=== PATIENT | female | born 1990 | race Caucasian/White ===

== ENCOUNTER 2021-10-20 06:06 | Day surgery (SDC) | payer BC, MEDICAID, SELFPAY ==
[2021-10-20] VITALS (8 sets, daily range): BP systolic 110–126; BP diastolic 71–89; PULSE 45–84; RESP 16; TEMP 36.3–36.6; O2SAT 96–100; BMI 38.0
[2021-10-20 07:15] LABS: Hemoglobin 12.4 g/dL (12.0-15.0); Mean Corp Hgb Conc 31.8 g/dL (32-36); Mean Corpuscular Hgb 26.6 pg (27.0-32.0); Mean Corpuscular Volume 83.7 fL (81-99); Mean Platelet Vol. 10.3 fl (6.2-12.0); Platelet Count 183 K/mm3 (150-450); RBC Distribution Width CV 15.3 % (11.6-14.6); RBC Distribution Width SD 45.4 fl (35.1-43.9); Red Blood Count 4.66 M/mm3 (4.2-5.4); White Blood Count 4.9 K/mm3 (4.4-11.0)
--- NOTE | 2021-10-20 07:30 | POC_PTH ---
PATIENT: JOEL ROJAS [place] [facility] [place][id number] AGE/SX: 31/F ROOM: RE10/20/[address]: Dr. Ro Soto DO : 1990 BED: DIS: 10/20/2021 SPEC #: [id number] RECD: 10/20/21 08:43 STATUS: BONIFACIO ERICH #: [id number] SASHA: 10/20/21 07:[address]: Ro Soto DEPT: SURGICAL PATHOLOGY RECD BY: Aurelia Malone ENTERED: 10/20/21 10:38 SP TYPE: PROD CONC OTHR DR: No Primary Care Phys Tissues: Product of conception, NOS Procedures: Surgery Specimen Level IV HEADER OPERATION: Suction dilation and curettage PRE-OP DIAGNOSIS: 11-week missed TISSUE SUBMITTED: Products of conception MICROSCOPIC DIAGNOSIS Endometrium, curettage: Chorionic villi, decidualized stroma and trophoblastic cells consistent with products of conception. AM:shaka 10/23/2021 MICROSCOPIC DESCRIPTION Slides are reviewed. GROSS DESCRIPTION Received in fixative is one container labeled with the patient's name and designated products of conception. The specimen consists of multiple irregular and hemorrhagic fragments of red-steward soft tissue that in aggregate measure 14 x 13 x 1.5 cm. parts are not grossly identified. Mixing Machine Tender sections are submitted in one cassette. / AM:shaka 10/20/2021 TC:5 CPT: 39587
[2021-10-20] MEDS: miSOPROStol 200 MCG Tablet (08:25)
--- NOTE | 2021-10-20 08:31 | PCM.DC ---
Discharge Instructions Diet Discharge Diet: No restrictions Activity Discharge Activity: May Not Drive (for 24 hours after surgery) May resume sexual activity in: 1-2 weeks (No intercourse, tampons, hot tubs, baths, or pools for 1-2 weeks until bleeding stops) Weight Bearing Status: Weight bearing as tolerated Lifting Restrictions: None Additional Activity Instructions:: You will have cramping for a few days, and bleeding for 1-2 weeks. Take Ibuprofen as needed, and use a heating pad. Dressing / Incision Call your doctor if you observe: Fever of 101 or Higher, Coldness, Increased Pain, Numbness or Tingling, Change in Color, Inability to urinate, Inability to have a bowel movement, Using more than 1 pad per hour, Shortness of breath, Dizziness, Fainting spells, Swelling in the ankles, Chest pain, Increased palpitations (irregular heartbeat), Calf discomfort and Uncontrolled pain Follow Up Care Please Follow Up With: Ro Soto DO When: 1 week Test Results: Test results from this visit will be discussed in further detail at your follow-up appointment, if applicable. Discharge Plan Admission Primary Reason for Your Visit: surgery Attending Provider: Ro Soto Primary Care Provider: Fide Hernandez,Mini Primary Discharge Orders/Prescriptions Prescriptions: New ibuprofen 600 mg tablet 600 mg PO Q6H PRN (Reason: pain) Qty: 30 RF: 0 Referrals / Follow Up: Care Physician,Mini Primary [Primary Care Provider] - Disposition Disposition (needs filled in before D/C Order can be placed): Home, Self Care
--- NOTE | 2021-10-20 08:33 | PCM.OPRPT ---
Problems Associated Problem List Diagnoses (1) Missed : Report of Operation Date of Procedure: 10/20/21 Pre-Operative Diagnosis: 11 week MAB Post-Operative Diagnosis: 11 week MAB Surgery/Procedure Performed:: Suction D&C under ultrasound guidance Description of Surgical Findings:: Enlarged 11 week uterus Surgeon: Ro Soto Type of Anesthesia: MAC Special Medications: None Specimen's removed: Products of conception Drains: None Estimated Blood Loss (mL): 100 Fluids Replaced: 1000 mL Description of Procedure: The patient was taken to the operating room where MAC anesthesia was found to be adequate. She was prepped and draped in the dorsal lithotomy position using yellowfin stirrups. A weighted speculum was placed in the vagina to expose the cervix. The anterior lip of the cervix was grasped with a single-tooth tenaculum. The cervix was already 1 cm dilated. The cervix was serially dilated to accommodate a size 12 suction curettage. Under ultrasound guidance a 12 mm suction curettage was advanced into the cavity without difficulty, and was used to suction contents of the uterus. A sharp curettage was then used to remove additional tissue in the cornua of the uterus, and used along all 4 price of the uterus to note a gritty texture. The suction curettage was advanced 1 last time and no additional remaining products were noted. Ultrasound confirmed a thin endometrial stripe and no remaining products of conception. All instruments were removed from the vagina. 800 mcg of Cytotec was placed rectally. Hemostasis was noted. Sponge, lap and instrument counts were correct. The patient was taken to the recovery room in stable condition. Grafts/Implants Used: None Procedure Start Time: 07:55 Procedure Stop Time: 08:26 Complications None Admit VTE Documentation VTE Present on Admission: No VTE Mechan Device Prophylaxis: SCD's
--- NOTE | 2021-10-20 13:00 | HP.PCM.OB_ITS ---
HPI - General HPI Narrative JOEL ROJAS, is a 31 F who presents for scheduled suction D&C. Presented to the office for her NT ultrasound and at that time the resin remover found a crown-rump length of 11 weeks and [address] heartbeat[address] Dr[address] Land had discussed management options with the patient of [facility] and the patient desired to proceed with a D&C. No bleeding or pain. PFSH PFSH Medical History (Updated 10/20/21 @ 08:[address] Ro Soto, DO) Bruising Depression Marijuana use Non-smoker Wears glasses Home Medications ibuprofen 600 mg PO Q6H PRN #30 tab 10/20/21 [Rx Last Taken Unknown] Allergy/AdvReac Type Severity Reaction Status Date / Time No Known Allergies Allergy Verified 10/20/21 06:50 Surgical History (Updated 10/19/21 @ 11:03 by Cady Thornton) History of surgery History of wisdom tooth extraction Social History Smoking Status: Never smoker ROS Constitutional Constitutional: Reports systems reviewed and no addt'l complaints, except as documented Cardiovascular Cardiovascular: Denies abdominal pain, chest pain, dizziness or vomiting Respiratory/Chest Respiratory/Chest: Denies chest tightness, dry cough, dyspnea or wheezing Gastrointestinal Gastrointestinal: Reports none Genitourinary Genitourinary: Reports none Musculoskeletal Musculoskeletal: Reports none Integumentary Integumentary: Reports none Neurologic Neurologic: Reports none Hematologic/Lymphatic Hematologic/Lymphatic: Reports none Vital Signs Vital Signs Vital Signs: 10/20/21 07:13 10/20/21 07:19 10/20/21 08:35 Temperature 97.8 F 97.4 F L Temperature Source Temporal Temporal Pulse Rate 84 50 L Pulse Strength Respiratory Rate 16 16 Respiratory Pattern Normal Normal Blood Pressure 110/74 115/77 Blood Pressure Mean 86 89 Blood Pressure Source Monitor Monitor Blood Pressure Position Semi-Fowlers Supine Blood Pressure Location Left Arm Right Arm Baseline BP 110/74 Pulse Ox 99 96 Oxygen Delivery Method Room Air Room Air 10/20/21 08:40 10/20/21 08:44 10/20/21 08:45 Temperature Temperature Source Pulse Rate 45 L 49 L Pulse Strength Normal (2+) Respiratory Rate 16 16 Respiratory Pattern Blood Pressure 116/75 115/75 Blood Pressure Mean 88 88 Blood Pressure Source Monitor Monitor Blood Pressure Position Supine Supine Blood Pressure Location Right Arm Right Arm Baseline BP 110/74 110/74 Pulse Ox 98 97 Oxygen Delivery Method Room Air Room Air 10/20/21 08:50 10/20/21 08:55 10/20/21 09:15 Temperature 97.3 F L Temperature Source Temporal Pulse Rate 58 L 60 62 Pulse Strength Respiratory Rate 16 16 16 Respiratory Pattern Normal Blood Pressure 119/71 126/89 H 125/87 H Blood Pressure Mean 87 101 99 Blood Pressure Source Monitor Monitor Monitor Blood Pressure Position Semi-Fowlers Semi-Fowlers Semi-Fowlers Blood Pressure Location Right Arm Right Arm Right Arm Baseline BP 110/74 110/74 110/74 Pulse Ox 100 99 100 Oxygen Delivery Method Room Air Room Air Room Air 10/20/21 10:16 Temperature 97.8 F Temperature Source Temporal Pulse Rate 62 Pulse Strength Respiratory Rate 16 Respiratory Pattern Blood Pressure 118/76 Blood Pressure Mean 90 Blood Pressure Source Monitor Blood Pressure Position Semi-Fowlers Blood Pressure Location Right Arm Baseline BP 110/74 Pulse Ox 100 Oxygen Delivery Method Room Air Weight Weight: 235 lb 3.732 oz Body Mass Index (BMI) 38.0 Physical Exam Const alert and no apparent distress General Appearance: comfortable HEENT normocephalic Resp normal respiratory effort Cardio regular rate, regular rhythm and no murmurs GI soft to palpation and non-tender Extremity normal to inspection Labs Labs Labs: Blood Type A POSITIVE Antibody Screen NEGATIVE Hct 39.0 % (37-47) Hgb 12.4 g/dL (12.0-15.0) Assessment & Plan (1) Missed : PLAN: Missed at 11 weeks. Discussed risk, benefits, alternatives to a suction dilation and curettage and patient desires to proceed. Consent signed. Discussed option for Anora miscarriage testing today with her and her , and they declined testing. CBC and type and screen on admission. Positive blood type. To receive doxycycline preop.
== END 2021-10-20 10:17 | disposition home or self-care (01) ==
LOC: SDC 06:07 → AC 06:09
PROVIDERS: Referring Provider Obstetrics & Gynecology; Visit Provider Obstetrics & Gynecology
PROC: (CPT 59820; principal; 2021-10-20 07:15)
DX: O02.1 Missed abortion (principal)
CPT/HCPCS: 59820; 01965; 85027; 86850; 86900; 86901; 88305; J7120; J2405

== ENCOUNTER 2022-08-11 01:52 | Outpatient (CLI) | payer BC, MEDICAID, SELFPAY ==
[2022-08-11] VITALS (66 sets, daily range): BP systolic 110–125; BP diastolic 64–76; PULSE 81–109; RESP 16–18; TEMP 35.9–37.1; O2SAT 93–100; BMI 37.6
[2022-08-11 02:58] LABS: ROM Internal Control Test YES-OK TO RESULT pt. (Internal QC); ROM Patient Test POSITIVE (Negative)
[2022-08-11] MEDS: Lactated Ringers 1,000 ML 15 ML IV (03:25)
[2022-08-11] MEDS: Magnesium Sulfate 4gm/100mL 4 GM/100 ML IV.SOLN. IV (03:30)
[2022-08-11 03:40] LABS: Bedside Glucose 73 mg/dL (74-106)
[2022-08-11] MEDS: Betamethasone/Betamethasone 30 MG/5 ML Vial 12 MG IM (03:43)
[2022-08-11 03:50] LABS: Absolute Lymphocyte Count 0.78 X10^3/uL (0.83-4.51); Absolute Neutrophil Count 3.6 X10^3/uL (2.0-7.7); Basophil# 0.01 X10^3/uL; Basophil% 0.2 % (0-1); Eosinophil# 0.04 X10^3/uL; Eosinophils% 0.8 % (0-5); Hemoglobin 10.9 g/dL (12.0-15.0); Lymphocyte # 0.78 X10^3/ul (0.83-4.51); Lymphocyte % 15.7 % (19-41); Mean Corp Hgb Conc 31.1 g/dL (32-36); Mean Corpuscular Hgb 26.7 pg (27.0-32.0); Mean Corpuscular Volume 85.6 fL (81-99); Mean Platelet Vol. 10.8 fl (6.2-12.0); Monocyte# 0.46 X10^3/uL; Monocyte% 9.3 % (0-10); NRBC Flagged by Analyzer 0 % (0-5); Neutrophil # 3.64 X10^3/uL (2.7-7.7); Neutrophil % 73.2 % (47-70); Platelet Count 162 K/mm3 (150-450); RBC Distribution Width CV 15.8 % (11.6-14.6); RBC Distribution Width SD 48.1 fl (35.1-43.9); Red Blood Count 4.09 M/mm3 (4.2-5.4)
[2022-08-11] MEDS: Magnesium Sulfate 4gm/100mL 2 GM/50 ML IV.SOLN. IV (03:50)
--- NOTE | 2022-08-11 03:52 | PCM.HP.OB ---
HPI - General General Date of Service: 08/11/22 HPI Narrative JOEL ROJAS, is a 32 F who presents with vaginal bleeding. She also reports leaking fluid with coughing since Saturday. She denies contractions or pelvic pain. Maternal Data Information Final MILVIA: 08/11/22 Gestational age: 30&5 PFSH PFS Medical History Bruising Depression Marijuana use Non-smoker Wears glasses Home Medications vits no.130-ferrous fum 27 mg iron-folic acid 800 mcg tablet ( Vitamin) 1 tab PO DAILY 08/11/22 [History Last Taken 08/08/22] Allergy/AdvReac Type Severity Reaction Status Date / Time No Known Allergies Allergy Verified 08/11/22 02:14 Surgical History History of surgery History of wisdom tooth extraction Social History Smoking Status: Never smoker NST FHR Rate Baby A Baseline: 135 Variability:: Moderate Accelerations:: 15 x 15 Decelerations:: Variable Uterine Activity:: Quiet Vital Signs Vital Signs Vital Signs: 08/11/22 02:12 08/11/22 02:12 08/11/22 02:12 Temperature Temperature Source Temporal Pulse Rate 106 H Respiratory Rate Respiratory Effort Respiratory Depth Respiratory Pattern Blood Pressure 118/66 BP Systolic 118 BP Diastolic 66 Pulse Ox Oxygen Delivery Method 08/11/22 02:12 08/11/22 03:33 08/11/22 03:33 Temperature 98.5 F Temperature Source Pulse Rate 91 Respiratory Rate Respiratory Effort Respiratory Depth Respiratory Pattern Blood Pressure 122/76 H BP Systolic 122 BP Diastolic 76 Pulse Ox Oxygen Delivery Method 08/11/22 03:33 08/11/22 03:38 08/11/22 03:38 Temperature Temperature Source Pulse Rate 93 Respiratory Rate Respiratory Effort Respiratory Depth Respiratory Pattern Blood Pressure BP Systolic BP Diastolic Pulse Ox 100 97 Oxygen Delivery Method 08/11/22 03:39 08/11/22 03:39 08/11/22 03:43 Temperature Temperature Source Pulse Rate 103 H 90 Respiratory Rate Respiratory Effort Respiratory Depth Respiratory Pattern Blood Pressure BP Systolic BP Diastolic Pulse Ox 94 Oxygen Delivery Method 08/11/22 03:43 08/11/22 03:47 08/11/22 03:48 Temperature Temperature Source Pulse Rate 97 Respiratory Rate Respiratory Effort Respiratory Depth Respiratory Pattern Blood Pressure 117/67 BP Systolic 117 BP Diastolic 67 Pulse Ox 96 Oxygen Delivery Method 08/11/22 03:48 08/11/22 03:30 Temperature 98.8 F Temperature Source Temporal Pulse Rate 93 Respiratory Rate 18 Respiratory Effort Normal Non-Labored Respiratory Depth Normal Respiratory Pattern Normal Blood Pressure BP Systolic BP Diastolic Pulse Ox 97 98 Oxygen Delivery Method Room Air Weight Weight: 233 lb 7.512 oz Body Mass Index (BMI) 37.6 Physical Exam Const alert, oriented x3 and no apparent distress Chest inspection of chest normal Resp normal respiratory effort external exam normal Narrative: SSE - scant fluid in vault, cvx visually closed Labs Labs Labs: Blood Type A POSITIVE Antibody Screen NEGATIVE Hct 35.0 % (37-47) L Hgb 10.9 g/dL (12.0-15.0) L Group B Strep DNA Pending See [facility] prenatals Assessment & Plan (1) premature rupture of membranes (PPROM) delivered, current hospitalization: COMMENT: 31yo @ 30&5 PLAN: Ampicillin & azithromycin ordered Magnesium for neuroprotection BMZ #1 given GBS sent Covid test pending d/t maternal cough Discussed with Will transport to [facility] (2) Gestational diabetes mellitus, class A1:
[2022-08-11] MEDS: Magnesium Sulfate 20 GM/500 ML BAG IV (04:01)
[2022-08-11] MEDS: 0.9% Saline Lock 10 ML Syringe IV ×2 (04:43→05:54)
[2022-08-11 05:06] LABS: Group B Strep DNA By PCR Negative (Negative); Internal Control PASS; Probe Check PASS; Specimen Processing Control PASS
== END 2022-08-11 08:00 | disposition home or self-care (01) ==
LOC: WPOUT 02:06 → WP 02:06
PROVIDERS: Obstetrics & Gynecology; Visit Provider Advanced Practice Midwife
DX: O42.913 Preterm premature rupture of membranes, unspecified as to length of time between rupture and onset of labor, third trimester (principal); Z3A.30 30 weeks gestation of pregnancy; O24.429 Gestational diabetes mellitus in childbirth, unspecified control
CPT/HCPCS: 96365; 96368; 96372; 36415; 59025; 59050; 76815; 82962; 84112; 85025; 87081; 87426; 87653; 94760; 99221; J7120; A4216; G0378; J0702

== ENCOUNTER 2022-10-08 07:20 | Inpatient (IN) | payer BC, MEDICAID, SELFPAY ==
[2022-10-08] VITALS (40 sets, daily range): BP systolic 96–121; BP diastolic 50–85; PULSE 52–84; RESP 18; TEMP 36–37; O2SAT 91–100; BMI 39.2
[2022-10-08] MEDS: Lactated Ringers 1,000 ML 50 ML IV (07:40)
[2022-10-08 07:59] LABS: Absolute Lymphocyte Count 1.24 X10^3/uL (0.83-4.51); Basophil# 0.03 X10^3/uL; Basophil% 0.4 % (0-1); Eosinophil# 0.13 X10^3/uL; Eosinophils% 1.8 % (0-5); Hematocrit 32.5 % (37-47); Hemoglobin 9.8 g/dL (12.0-15.0); Lymphocyte # 1.24 X10^3/ul (0.83-4.51); Lymphocyte % 17.5 % (19-41); Mean Corp Hgb Conc 30.2 g/dL (32-36); Mean Corpuscular Hgb 25.6 pg (27.0-32.0); Mean Corpuscular Volume 84.9 fL (81-99); Mean Platelet Vol. 11.2 fl (6.2-12.0); Monocyte# 0.67 X10^3/uL; Monocyte% 9.5 % (0-10); NRBC Flagged by Analyzer 0 % (0-5); Neutrophil # 4.98 X10^3/uL (2.7-7.7); Neutrophil % 70.4 % (47-70); Platelet Count 154 K/mm3 (150-450); RBC Distribution Width CV 16.6 % (11.6-14.6); RBC Distribution Width SD 51.2 fl (35.1-43.9); Red Blood Count 3.83 M/mm3 (4.2-5.4); White Blood Count 7.1 K/mm3 (4.4-11.0)
[2022-10-08] MEDS: Oxytocin 15 Units/NS 250ml 15 UNITS/250 ML IV.SOLN 2 UNITS IV (08:00)
[2022-10-08 08:21] LABS: Bedside Glucose 103 mg/dL (74-106)
[2022-10-08 08:37] LABS: Syphilis Antibodies Non-reactive
--- NOTE | 2022-10-08 08:57 | PCM.HP.OB ---
HPI - General General Date of Admission: 10/08/22 Date of Service: 10/08/22 Chief Complaint: induction of labor HPI Narrative JOEL ROJAS, is a 32-year-old 4 para 2-0-1-2 who presents at 39 weeks gestation for induction of labor due to gestational diabetes. Diabetes seems to be well controlled but patient has difficulty monitoring her blood glucose levels. She denies any vaginal bleeding or leaking of fluid. She has had good movement. Social history: Patient has admitted to marijuana use throughout the , last use last night. is complicated to date by gestational diabetes she is not on insulin, maternal obesity with BMI of 39, history of depression. Maternal Data Information Final MILVIA: 10/15/22 Gestational age: 39-0/7 [facility] Medical History (Updated 10/08/22 @ 09:[address] Elidia Garcia MD) Bruising Depression Gestational diabetes Marijuana use Non-smoker Wears glasses Home Medications vits no.130-ferrous fum 27 mg iron-folic acid 800 mcg tablet ( Vitamin) 1 tab PO DAILY 08/11/22 [History Last Taken 08/08/22] Allergy/AdvReac Type Severity Reaction Status Date / Time No Known Allergies Allergy Verified 10/08/22 07:35 Surgical History History of surgery History of wisdom tooth extraction Social History Smoking Status: Never smoker History Elective abortions Hx Para 2 Spontaneous abortions Hx # Term Pregnancies Ectopic pregnancies Hx # Pregnancies Multiple births # of living children ROS Constitutional Constitutional: Denies fatigue, fever(s) or malaise Eyes Eyes: Denies change in vision ENT HEENT: Denies dizziness or headache(s) Cardiovascular Cardiovascular: Denies chest pain, dyspnea or lightheadedness Respiratory/Chest Respiratory/Chest: Denies cough or dyspnea Gastrointestinal Gastrointestinal: Denies change in bowel habits Genitourinary Genitourinary: Denies burning urination or genital lesions Integumentary Integumentary: Denies rash Neurologic Neurologic: Denies confusion, dizziness, headache(s), numbness or weakness Vital Signs Vital Signs Vital Signs: 10/08/22 07:52 10/08/22 07:52 10/08/22 07:52 Temperature Temperature Source Temporal Pulse Rate 79 Blood Pressure 117/73 BP Systolic 117 BP Diastolic 73 Pulse Ox 10/08/22 07:52 10/08/22 07:52 Temperature 97.7 F L Temperature Source Pulse Rate Blood Pressure BP Systolic BP Diastolic Pulse Ox 98 Weight Weight: 110.223 kg Body Mass Index (BMI) 39.2 Physical Exam Const alert and no apparent distress General Appearance: cooperative HEENT normocephalic Resp normal respiratory effort Cardio regular rate GI soft to palpation GI Narrative: gravid, nontender, appropriate for gestational age Extremity no calf tenderness General Extremity: edema Skin no wounds Rashes: No rashes noted Psych activity/motor behavior normal Labs Labs Labs: Blood Type A POSITIVE Antibody Screen NEGATIVE Hct 32.5 % (37-47) L Hgb 9.8 g/dL (12.0-15.0) L Syphilis Total Ab Non-reactive Group B Strep DNA Negative (Negative) Assessment & Plan (1) 39 weeks gestation of : (2) Maternal obesity syndrome in second trimester: (3) Obesity, Class II, BMI 35-39.9: (4) Gestational diabetes mellitus, class A1: PLAN: Risk benefits and alternatives to induction of labor have been discussed with patient, her questions were answered to her satisfaction she desires to proceed. She will undergo Dee with Pitocin and artificial rupture membranes if needed for induction of labor. Estimated weight is less than 4500 g clinically and by ultrasound. Pelvis is clinically adequate to expect vaginal delivery. May have routine pain management measures as desired and indicated. We will check blood sugars during labor. History of THC use during , urine tox screen ordered. Procedure note: Dee catheter was placed over the stylette into the internal cervical os in the usual sterile fashion. Cervix was 2, 70, -3, medium consistency and mid position. The Dee was placed in the usual fashion over the internal cervical os and inflated to 30 cc. Placement over the internal os was confirmed in the fetus and the patient tolerated the procedure well.
[2022-10-08 09:30] LABS: Bedside Glucose 98 mg/dL (74-106)
[2022-10-08] MEDS: 0.9% Normal Saline Single 100 ML IV.SOLN. INTRA-UTER (09:32)
[2022-10-08] MEDS: fentaNYL-bupivacaine (epidural) 100 ML BAG EPIDURAL ×3 (11:03→16:00)
[2022-10-08 12:55] LABS: Bedside Glucose 91 mg/dL (74-106)
[2022-10-08 15:49] LABS: Amphetamine Urine VISTA NEGATIVE (<1000 ng/mL); Barbiturate Urine VISTA NEGATIVE (< 200 ng/mL); Benzodiazepine Urine VISTA NEGATIVE (< 200 ng/mL); Cocaine Urine VISTA NEGATIVE (< 300 ng/mL); Ecstacy Urine VISTA NEGATIVE (< 500 ng/mL); Methadone Urine VISTA NEGATIVE (< 300 ng/mL); PCP Urine VISTA NEGATIVE (< 25 ng/mL); THC Urine VISTA POSITIVE (< 50 ng/mL); Vista UDS pH Range 6
[2022-10-08 16:40] LABS: Bedside Glucose 76 mg/dL (74-106)
--- NOTE | 2022-10-08 17:29 | EX.PCM.OBRPT ---
Assessment & Plan (1) 39 weeks gestation of : (2) Gestational diabetes mellitus, class A1: (3) Maternal obesity syndrome in second trimester: (4) Obesity, Class II, BMI 35-39.9: (5) (spontaneous vaginal delivery): Maternal Data Information Final MILVIA: 10/15/22 Gestational age: 39 0/7 Vaginal Delivery Maternal Presentation Maternal Presentation: Medically Indicated Induction Type of Induction: Pitocin, Dee Bulb and Amniotomy Medical Reason for Induction: - (GDMA1 and maternal obesity) Operative Information Date of Procedure: 10/08/22 Pre-Operative Diagnosis: labor Post-Operative Diagnosis: same Surgery / Procedure Performed: Spontaneous Vaginal Delivery Type of Anesthesia: Epidural Special Medications: none Drain: Dee to straight drain Estimated Blood Loss: 200 Time of Delivery: 15:09 Findings Description of Procedure: A vigorous female infant was delivered BALA over an intact perineum. The remainder the was delivered with maternal pushing and gentle traction only in less than 15 seconds. The Pitocin infusion was initiated for active management of the third stage. The cord was clamped and cut after 1 minute. The was attended to by the waiting nursing staff. The placenta was delivered spontaneously and intact. The cervix and vagina were intact. Sponge and needle counts were correct. A vaginal sweep was completed by me. Presentation: BALA Amniotic Membrane Rupture Type: Spontaneous Amniotic Fluid Description: Clear Placental Delivery Description: Spontaneous Placenta Disposition: [facility] Cord Vessel Description: 3 Vessels Cord Entanglement: None A Gender: Female (Adry Julien) (1 minute): 9 (5 minute): 9 Delayed Cord Clamping: Yes Post Vaginal Delivery Medications Given After Delivery: IV Pitocin Episiotomy Description: None Laceration: None Complication Complications: None
[2022-10-08] MEDS: Acetaminophen 500 MG Tablet 1000 MG PO (17:53)
[2022-10-08 18:06] LABS: Bedside Glucose 73 mg/dL (74-106)
[2022-10-08] MEDS: Oxytocin 15 Units/NS 250ml 15 UNITS/250 ML IV.SOLN 83 UNITS IV (18:30)
[2022-10-08] MEDS: 0.9% Saline Lock 10 ML Syringe IV (21:30)
[2022-10-09 03:45] VITALS: BP 120/75; PULSE 73; RESP 16; TEMP 36.8
[2022-10-09 06:50] LABS: Bedside Glucose 81 mg/dL (74-106)
--- NOTE | 2022-10-09 08:49 | PN.OBGYN_ITS ---
Subjective Subjective Denies complaints Objective Data Objective Data Vital Signs: Vital Signs Temp Pulse Resp BP Pulse Ox O2 Del Method 98.3 F 73 16 120/75 99 Room Air 10/09/22 03:45 10/09/22 03:45 10/09/22 03:45 10/09/22 03:45 10/08/22 11:11 10/08/22 15:04 Oxygen Delivery Method Room Air Weight: 243 lb Body Mass Index (BMI) 39.2 Intake & Output: Intake and Output for Last 24 Hours 10/07/22 10/08/22 10/09/22 23:59 23:59 23:59 Intake Total 816.06 / 816.06 Output Total 750 / 750 900 / 900 Balance 66.06 / 66.06 -900 / -900 Lab / Micro Data Result Diagrams: 10/08/22 07:40 Labs: Laboratory Results - last 24 hr 10/08/22 07:40: Blood Type A POSITIVE, Antibody Screen NEGATIVE 10/08/22 09:08: POC Glucose 98 10/08/22 12:32: POC Glucose 91 10/08/22 15:25: Urine Opiates Screen NEGATIVE, Urine Methadone Screen NEGATIVE, Ur Barbiturates Screen NEGATIVE, Ur Phencyclidine Scrn NEGATIVE, Ur Amphetamines Screen NEGATIVE, MDMA (Ecstasy) Screen NEGATIVE, U Benzodiazepines Scrn NEGATIVE , Urine Cocaine Screen NEGATIVE, U Cannabinoids Screen POSITIVE H, Ur Drug Sc reen Comment 10/08/22 16:12: POC Glucose 76 10/08/22 17:46: POC Glucose 73 L 10/09/22 06:24: POC Glucose 81 Physical Exam Const alert, oriented x3 and no apparent distress HEENT normocephalic GI soft to palpation, non-tender and non-distended GI Narrative: fundus firm, mid & below umbilicus Extremity normal to inspection and no calf tenderness Assessment & Plan (1) Gestational diabetes mellitus, class A1: COMMENT: PPD#1 (2) (spontaneous vaginal delivery): PLAN: Plan FBS normal this AM Routine care Possible discharge home later today
--- NOTE | 2022-10-09 08:50 | DCINST_ITS ---
Discharge Instructions Follow Up Care Please Follow Up With: Elidia Garcia MD When: 2&6 weeks Test Results: Test results from this visit will be discussed in further detail at your follow- up appointment, if applicable. Discharge Plan Admission Admit Date/Time: 10/08/22 07:20 Primary Reason for Your Visit: Vaginal delivery Attending Provider: Elidia Garcia Primary Care Provider: Care Physician,Mini Primary Discharge Orders/Prescriptions Prescriptions: New acetaminophen 500 mg Tablet 1,000 mg PO Q6H PRN PRN (Reason: Pain 1-10 Or Fever) Qty: 0 0RF ibuprofen 600 mg Tablet 600 mg PO Q6H PRN PRN (Reason: Pain Score 1-3) Qty: 0 0RF Continued Vitamin 27 mg iron- 800 mcg tablet 1 tab PO DAILY Referrals / Follow Up: Care Physician,No Primary [Primary Care Provider] - Disposition Disposition (needs filled in before D/C Order can be placed): Home, Self Care
[2022-10-09 09:00] VITALS: BP 97/60; PULSE 68; RESP 16; TEMP 36.2
[2022-10-09] MEDS: Ibuprofen 600 MG Tablet PO (09:28)
[2022-10-09] MEDS: Senna/Docusate Sodium 1 Tablet PO (09:29)
[2022-10-09 12:57] VITALS: BP 122/71; PULSE 72; RESP 16; TEMP 36.4
[2022-10-09 18:30] VITALS: BP 117/76; PULSE 68; RESP 16; TEMP 36.4
--- NOTE | 2022-10-09 18:49 | NURSING ---
This nurse spoke to Aspen CM she states that the pt failed PHQ 2 and PHQ9, pt stated to [facility] she has felt she would be better off , pt does state she does not have a plan of action. Pt also does not have a functional crib but she had told nursing she did it just wasnt put together, Pt stated to nursing staff and to Aspen that she felt she and her family would be evicted soon from her brothers residence. Pt states her brother is an alcoholic. made aware that the pt did fail the PHQ9 and that Aspen does not feel the pt needs a sitter. also aware children services would be involved in the case. Pt would not be discharged this evening, agrees.
[2022-10-09 21:00] VITALS: BP 113/81; PULSE 81; RESP 18
[2022-10-10 02:25] VITALS: BP 112/74; PULSE 57; RESP 17; TEMP 36.1
[2022-10-10 07:52] VITALS: BP 114/71; PULSE 65; RESP 17; TEMP 36.5
--- NOTE | 2022-10-10 09:47 | PCM.PROGNOTE ---
Subjective Subjective patient seen at bedside, doing well. Patient reports good pain control. lochia mild. Objective Data Objective Data Vital Signs: Vital Signs Temp Pulse Resp BP Pulse Ox O2 Del Method 97.7 F L 65 17 114/71 99 Room Air 10/10/22 07:52 10/10/22 07:52 10/10/22 07:52 10/10/22 07:52 10/08/22 11:11 10/10/22 07:52 Oxygen Delivery Method Room Air Weight: 110.223 kg Body Mass Index (BMI) 39.2 Intake & Output: Intake and Output for Last 24 Hours 10/08/22 10/09/22 10/10/22 23:59 23:59 23:59 Intake Total 816.06 / 816.06 Output Total 750 / 750 900 / 900 Balance 66.06 / 66.06 -900 / -900 Lab / Micro Data Result Diagrams: 10/08/22 07:40 Physical Exam Const alert and oriented x3 General Appearance: cooperative HEENT normocephalic Neck General: normal visual inspection GI soft to palpation and non-distended GI Narrative: Fundus firm Extremity normal to inspection and no calf tenderness Skin no rashes or lesions noted Neuro oriented x3 and CN's II-XII intact bilaterally Psych mental status grossly normal Assessment & Plan Assessment/Plan (1) (spontaneous vaginal delivery): (2) Obesity, Class II, BMI 35-39.9: (3) Gestational diabetes mellitus, class A1: PLAN: Plan PPD#2 , Doing well Routine care pain mgmt ambulation dc home today after SW
[2022-10-10 14:10] VITALS: BP 125/82; PULSE 80; RESP 16; TEMP 36.1
== END 2022-10-10 16:00 | disposition home or self-care (01) | DRG 806 ==
PROVIDERS: Admitting Provider Obstetrics & Gynecology; Visit Provider Obstetrics & Gynecology
DX: O24.429 Gestational diabetes mellitus in childbirth, unspecified control (principal); Z37.0 Single live birth; O99.324 Drug use complicating childbirth; F12.90 Cannabis use, unspecified, uncomplicated; O99.214 Obesity complicating childbirth; Z3A.39 39 weeks gestation of pregnancy; E66.8 Other obesity; O26.23 Pregnancy care for patient with recurrent pregnancy loss, third trimester
CPT/HCPCS: 59025; 59050; 80307; 82962; 85025; 86780; 86850; 86900; 86901; 99221; J7120; A4216; G0378

== ENCOUNTER → 2023-04-05 | Outpatient (CLI) | payer MEDICAID, SELFPAY ==
[2023-04-05 16:13] LABS: hCG Titer Quant., Serum 7 mIU/mL (1-3)
== END | disposition home or self-care (01) ==
LOC: LAB 14:47
PROVIDERS: Referring Provider Obstetrics & Gynecology; Visit Provider Obstetrics & Gynecology
DX: O46.90 Antepartum hemorrhage, unspecified, unspecified trimester (principal); Z3A.00 Weeks of gestation of pregnancy not specified
CPT/HCPCS: 36415; 84702

== ENCOUNTER → 2023-04-07 | Outpatient (CLI) | payer MEDICAID, SELFPAY ==
[2023-04-07 15:46] LABS: hCG Titer Quant., Serum 4 mIU/mL (1-3)
== END | disposition home or self-care (01) ==
LOC: LAB 15:03
PROVIDERS: Referring Provider Obstetrics & Gynecology; Visit Provider Obstetrics & Gynecology
DX: O20.9 Hemorrhage in early pregnancy, unspecified (principal); Z3A.00 Weeks of gestation of pregnancy not specified
CPT/HCPCS: 36415; 84702

== ENCOUNTER 2024-04-02 07:34 | Inpatient (IN) | payer MEDICAID, SELFPAY ==
[2024-04-02] VITALS (59 sets, daily range): BP systolic 90–144; BP diastolic 53–84; PULSE 51–101; RESP 14–16; TEMP 36.1–37.3; O2SAT 84–100; BMI 37.3
[2024-04-02] MEDS: Lactated Ringers 1,000 ML 999 ML IV ×3 (08:15→14:55)
[2024-04-02] MEDS: 0.9% Normal Saline Single 100 ML IV.SOLN. INTRA-UTER (08:21)
[2024-04-02 08:25] LABS: Absolute Lymphocyte Count 0.89 X10^3/uL (0.83-4.51); Basophil# 0.02 X10^3/uL; Basophil% 0.3 % (0-1); Eosinophil# 0.31 X10^3/uL; Eosinophils% 4.5 % (0-5); Hematocrit 30.6 % (37-47); Hemoglobin 9.3 g/dL (12.0-15.0); Lymphocyte # 0.89 X10^3/ul (0.83-4.51); Mean Corp Hgb Conc 30.4 g/dL (32-36); Mean Corpuscular Hgb 25.2 pg (27.0-32.0); Mean Corpuscular Volume 82.9 fL (81-99); Mean Platelet Vol. 12.4 fl (6.2-12.0); Monocyte# 0.63 X10^3/uL; Monocyte% 9.2 % (0-10); NRBC Flagged by Analyzer 0 % (0-5); Neutrophil # 4.95 X10^3/uL (2.7-7.7); Neutrophil % 72.6 % (47-70); Platelet Count 149 K/mm3 (150-450); RBC Distribution Width CV 16.7 % (11.6-14.6); Red Blood Count 3.69 M/mm3 (4.2-5.4); White Blood Count 6.8 K/mm3 (4.4-11.0)
[2024-04-02] MEDS: Oxytocin 15 Units/NS 250ml 15 UNITS/250 ML IV.SOLN 2 UNITS IV (08:47)
[2024-04-02 08:59] LABS: Syphilis Antibodies Non-reactive
[2024-04-02 09:11] LABS: Amphetamine Urine VISTA NEGATIVE (<1000 ng/mL); Barbiturate Urine VISTA NEGATIVE (< 200 ng/mL); Benzodiazepine Urine VISTA NEGATIVE (< 200 ng/mL); Cocaine Urine VISTA NEGATIVE (< 300 ng/mL); Ecstacy Urine VISTA NEGATIVE (< 500 ng/mL); Methadone Urine VISTA NEGATIVE (< 300 ng/mL); PCP Urine VISTA NEGATIVE (< 25 ng/mL); THC Urine VISTA POSITIVE (< 50 ng/mL); Vista UDS pH Range 5
[2024-04-02] MEDS: fentaNYL-bupivacaine (epidural) 100 ML BAG EPIDURAL (12:27)
[2024-04-02] MEDS: 0.9% Saline Lock 10 ML Syringe IV (14:03)
[2024-04-02] MEDS: Amnioinfusion- 0.9% NS 1,000 ML IV.SOLN. 1000 ML INTRA-UTER (15:15)
[2024-04-02] MEDS: Oxytocin 15 Units/NS 250ml 15 UNITS/250 ML IV.SOLN 83 UNITS IV (18:15)
[2024-04-03 00:06] VITALS: BP 118/72; PULSE 74; RESP 16; TEMP 37.3
[2024-04-03] MEDS: Naproxen 500 MG Tablet PO ×2 (02:45→15:36)
[2024-04-03 05:08] VITALS: BP 103/66; PULSE 57; RESP 16
[2024-04-03 08:30] VITALS: BP 109/61; PULSE 52; RESP 16; TEMP 36.3
[2024-04-03 12:10] VITALS: BP 114/75; PULSE 76; RESP 16; TEMP 36.5
[2024-04-03 17:50] VITALS: BP 112/84; PULSE 79; RESP 16; TEMP 36.1
[2024-04-03] MEDS: Acetaminophen 500 MG Tablet 1000 MG PO (20:42)
[2024-04-03 21:43] VITALS: BP 130/84; PULSE 70; RESP 16; TEMP 36.6
[2024-04-04 05:45] VITALS: BP 113/64; PULSE 51; RESP 16; TEMP 36.9
[2024-04-04 08:54] VITALS: BP 123/87; PULSE 74; RESP 16; TEMP 36.5; O2SAT 99
[2024-04-04 14:40] VITALS: BP 134/99; PULSE 100; RESP 16; TEMP 36.1; O2SAT 99
[2024-04-04] MEDS: Benzocaine/Lanolin/Aloe Vera 85 GM Spray 1 SPRAY TOPICAL (15:03)
== END 2024-04-04 15:45 | disposition home or self-care (01) | DRG 560 ==
PROVIDERS: Obstetrics & Gynecology; Admitting Provider Advanced Practice Midwife; Referring Provider Advanced Practice Midwife; Visit Provider Advanced Practice Midwife
DX: O99.214 Obesity complicating childbirth (principal); Z37.0 Single live birth; O99.344 Other mental disorders complicating childbirth; F12.99 Cannabis use, unspecified with unspecified cannabis-induced disorder; F32.A Depression, unspecified; O99.324 Drug use complicating childbirth; F17.200 Nicotine dependence, unspecified, uncomplicated; N96 Recurrent pregnancy loss; Z3A.40 40 weeks gestation of pregnancy; Z86.19 Personal history of other infectious and parasitic diseases; O99.893 Other specified diseases and conditions complicating puerperium; Z86.39 Personal history of other endocrine, nutritional and metabolic disease; Z86.32 Personal history of gestational diabetes; O99.334 Smoking (tobacco) complicating childbirth
CPT/HCPCS: 59025; 59050; 80307; 85025; 86780; 86850; 86900; 86901; 99221; J7030; J7120; A4216; G0378